=== PATIENT | female | born 1975 | race African-American/Black ===

== ENCOUNTER 2016-06-04 00:49 | Emergency (ER) | payer MEDICAID ==
[2016-06-04 00:49] VITALS: BMI 33.0
[2016-06-04 01:01] VITALS: TEMP 98.7
[2016-06-04] MEDS ORDERED: SODIUM CHLORIDE 0.9% 3 ML FLUSH FLUSH PRN (01:05)
[2016-06-04] MEDS ORDERED: NS 1,000 ML IV ONE ×2 (01:05)
[2016-06-04 01:20] LABS: ALL NEG? NO
[2016-06-04 01:27] LABS: LEUKOCYTES/URINE 2+ (NEGATIVE); NITRITE/URINE NEG (NEGATIVE); URINE OCCULT BLOOD NEG (NEG/TRACE)
[2016-06-04 01:29] LABS: MDMA* NEG (NEGATIVE); METHAMPHETAMINES NEG (NEGATIVE); OXYCODONE NEG (NEGATIVE)
[2016-06-04 01:38] LABS: AUTOMATED BASOPHIL 0.6 % (0-2); AUTOMATED LYMPH 41.9 % (17-44); AUTOMATED MONOCYTE 5.5 % (3-10); MPV 7.2 fL (7.4-10.4)
[2016-06-04 01:46] LABS: BLOOD UREA NITROGEN 15 MG/DL (7-17); CALC CORRECTED 9.2 MG/DL (8.4-10.2); CALCIUM 9.1 MG/DL (8.4-10.2); CALCULATED OSMOLALITY 269 MOs/Kg (270-290); CHLORIDE 99 mEq/L (98-107); GLUCOSE 103 MG/DL (70-99); SODIUM LEVEL 139 mEq/L (137-146); TOTAL PROTEIN 7.7 G/DL (6.3-8.2)
[2016-06-04 01:48] LABS: PARTIAL THROMB. TIME 23.4 SEC (22-35)
--- NOTE | 2016-06-04 01:50 | DIRPT ---
CLINICAL DATA: Hypertension. Difficulty breathing. Numbness on the left side of the face earlier today. Tingling in the legs. EXAM: PORTABLE CHEST 1 VIEW COMPARISON: 02/08/2015 FINDINGS: The heart size and mediastinal contours are within normal limits. Both lungs are clear. The visualized skeletal structures are unremarkable. IMPRESSION: No active disease. Electronically Signed By: Tucker Nassar M.D. On: 06/04/2016 01:47
--- NOTE | 2016-06-04 02:14 | EDPRACDOC ---
- General Information Chief Complaint: Neuro Symptoms/Deficits Stated Complaint: FACIAL NUMBNESS Time Seen by Provider: 06/04/16 01:05 Information Source: Patient Mode Of Arrival: Car Home Medications: Home Medications Alprazolam [Xanax] 0.5 mg PO BID 03/28/13 Omeprazole Magnesium 20 mg PO DAILY 10/23/14 Aspirin [Aspirin EC] 325 mg PO DAILY #30 tablet. 06/04/16 Allergies/Adverse Reactions: Allergies Allergy/AdvReac Type Severity Reaction Status Date / Time codeine [Codeine] Allergy Mild Rash-Genera Verified 10/23/14 08:10 lized Penicillins Allergy Unknown Verified 10/23/14 08:10 - History of Present Illness Onset: station captain Exact Onset of Symptoms: Upon Awakening ([employer]) Date Symptoms Started: 06/04/16 HPI: PT STATES SHE HAS NOTICED LEFT FACIAL NUMBNESS AND TINGLING THROUGHOUT THE DAY THAT HAD RESOLVED STATES SHE FELT FINE WENT TO BED AND APPROX 30MINUTES AFTER GOING TO SLEEP SHE WOKE HAVING LEFT FACIAL NUMBNESS AND TINGLING COULDNT FEEL HER LEGS JUMPED UP OUT OF BED RAN TO THE FRONT DOOR AND OPENED THE DOOR BECAUSE SHE COULDNT BREATH AND YELLED AT FAMILY TO CALL 911. PT STATES THEY TOLD HER AFTER SHE CALMED DOWN THAT SHE NEEDED TO GO TO THE ED TO BE CHECKED OUT. PT STATES HER SYMPTOMS HAVE RESOLVED AT THIS TIME. Symptoms Started: Reports: Suddenly Symptoms Description: Other (RESOLVED) Weakness: Bilateral: Leg, Left: Face Symptoms: Reports: Numbness (AND TINGLING TO LEFT SIDE OF FACE AND BILATERAL LEG NUMBNESS AND TINGLING) Symptom Severity: Reports: Does not affect activitiy (AT THIS TIME PT IS SYMPTOM FREE AT THIS TIME. ) Associated signs and symptoms:: Reports: None ED Past Medical History - History Reviewed Yes Nurses notes reviewed and agree except as marked Travel Outside of [place] in the Last 3 Months?: No No Past Medical History: Yes Patient has no past medical history - Patient Medical History Cardiac History: Reports: Hypertension, Stress Test GI/ History: Reports: Gastroesophageal Reflux Psychological History: Reports: Anxiety. Denies: Depression Systemic History: Denies: Cancer Additional Past Medical History: Mitral Valve Prolapse. Hiatal Hernia Surgical History: Denies: Hysterectomy - Family Medical History Reports: Cancer (negative for colon cancer) - Social Medical History Smoking Status: Never smoker ETOH: None Substance Abuse: None Lives With: Other Lives In: Home EDM Review of Systems - Review of Systems ROS Negative Except as Marked: Yes All systems reviewed and were negative except as marked Constitutional: No Symptoms Reported. negative: Fever, Chills, Weakness, Fatigue, Loss of Appetite Eyes: No Symptoms Reported. negative: Redness, Blurred Vision, Double Vision, Discharge, Pain, Light Sensitive, Photophobia Ears: No Symptoms Reported. negative: Pain, Hearing Loss, Drainage, Ear Pulling Throat: No Symptoms Reported. negative: Pain, Swelling Nose: No Symptoms Reported. negative: Congestion, Bleeding, Discharge, Injection, Swelling, Deformity, Ecchymosis, Tender, Abrasion, Laceration Mouth: No Symptoms Reported. negative: Pain, Drooling Respiratory: No Symptoms Reported. negative: Cough, Brassy Cough, Barky Cough, Shortness of Breath, Wheezing, Hemoptysis Cardiovascular: No Symptoms Reported. negative: Chest Pain, Palpitations, Syncope, Edema, Orthopnea, PND, Skin Mottling, Cyanosis Gastrointestinal: No Symptoms Reported. negative: Pain, Constipation, Nausea, Vomiting, Diarrhea, Melena, Formula Intolerance Genitourinary: No Symptoms Reported. negative: Dysuria, Hematuria, Frequency, Discharge, Bleeding, Testicular Pain, Neurological: Numbness (AND TINGLING LEFT SIDE OF FACE AND BILATERAL LOWER EXTREMITIES HAS RESOLVED AT THIS TIME.). negative: Dizziness, Gait Difficulty, Headache, Seizure, Speech Difficulty, Weakness Musculoskeletal: No Symptoms Reported. negative: Neck, Chestwall, Ribs, Back, Shoulder, Arm, Elbow, Forearm, Wrist, Hand, Pelvis, Hip, Femur, Knee, Leg, Ankle , Foot Integumentary: No Symptoms Reported. negative: Itching, Rash, Bruising, Wound Allergic/Immunologic: No Symptoms Reported. negative: Hives, Itching Hematologic: No Symptoms Reported. negative: Lymphadenopathy, Easy Bruising, Easy Bleeding Endocrine: No Symptoms Reported. negative: Weight Gain, Weight Loss Psychiatric: No Symptoms Reported. negative: Anxiety, Depression, Hallucinations, Insomnia, Suicidal - Physical Exam Constitutional: Alert (Awake), No apparent distress Oriented to: Time, Person, Place Last recorded Vital Signs: Last Vital Signs Temp 98.7 F 06/04/16 00:57 Pulse 91 06/04/16 00:57 Resp 20 06/04/16 00:57 BP 134/89 06/04/16 00:57 Pulse Ox 100 01/27/17 00:57 Oxygen Pulse Oxygen Saturation 100 O2 Device Room Air Oxygen Flow Rate Fraction of Inspired Oxygen ( FIO2) - HEENT Head: Normal ( normocephalic) Eye Exam: Normal (PERRL, EOMI, Sclera white) Oropharynx: Normal (Pharynx:Moist without exudate,Gums-no swelling) Tympanic Membrane: Normal ENT EAC: Normal TMJ: Normal Nose: No Symptoms Reported (septum midline) Neck: Normal (FROM, trachea at midline) - Respiratory/Cardiovascular Respiratory: Normal - CTA (BBS clear to auscultation without adventitious sounds ) Cardiovascular: Normal (RRR without murmur, gallop or rub) - GI Auscultation: Normal (NABS) Palpation: Normal (Soft,No rebound or guarding, non distended) Tenderness: Non tender Carter's Sign: Negative - Musculoskeletal Back: Normal (Non-Tender) Extremities: Normal (Normal tone, Pulses 2+ No cyanosis or edema, FROM) - Integumentary Skin: Normal, Warm, Dry Lymphatics: Normal (no adenopathy) - Neurologic Memory Impaired: Normal Motor Function: Normal (Normal tone, Pulses 2+ No cyanosis or edema, FROM) Cranial Nerve: Normal (CN II-X11 intact sensation, strength 5/5) Cerebellar: Normal Mood Description: Normal Perception: Normal NIH Stroke Scale Initial Evaluation Level of Consciousness: Alert LOC- Question: Answers Both Correctly LOC Commands: Both Task Correctly Best Gaze: Normal Visual: No Visual Loss Facial Palsy: Normal Movement Motor Arm LEFT: No Drift Motor Arm RIGHT: No Drift Motor Leg LEFT: No Drift Motor Leg RIGHT: No Drift Limb Ataxia: Absent Sensory: Normal Best Language: No Aphasia Dysarthria: Normal Extinction and Inattention: No Abnormality (Neglect) Score: 0out of42 - Differential Diagnosis Anemia, CVA, Dehydration, Electrolyte disorder, TIA, Other (MAGDALENO PALSY) - Results 06/04/16 01:23 06/04/16 01:23 WBC 7.2 xk/uL (3.8-10.8) 06/04/16 01:23 RBC 4.69 xM/uL (4.20-5.40) 06/04/16 01:23 Hgb 12.4 g/dL (12.0-16.0) 06/04/16 01:23 Hct 36.9 % (36-47) 06/04/16 01:23 MCV 79 fL (81-99) L 06/04/16 01:23 MCH 26.3 pg (27-32) L 06/04/16 01:23 MCHC 33.5 g/dl (33-36) 06/04/16 01:23 RDW 13.0 % (11.5-14.5) 06/04/16 01:23 Plt Count 210 xk/uL (130-400) 06/04/16 01:23 MPV 7.2 fL (7.4-10.4) L 06/04/16 01:23 Neut % (Auto) 51.0 % (45-76) 06/04/16 01:23 Lymph % (Auto) 41.9 % (17-44) 06/04/16 01:23 [place] % (Auto) 5.5 % (3-10) 06/04/16 01:23 Eos % (Auto) 1.0 % (0-5) 06/04/16 01:23 Baso % (Auto) 0.6 % (0-2) 06/04/16 01:23 Absolute Neuts (auto) 3.67 xk/uL (1.7-8.2) 06/04/16 01:23 Absolute Lymphs (auto) 2.95 xk/uL (0.65-4.75) 06/04/16 01:23 PT 10.7 SEC (9.2-11.2) 06/04/16 01:23 INR 1.0 06/04/16 01:23 APTT 23.4 SEC (22-35) 06/04/16 01:23 Sodium 139 mEq/L (137-146) 06/04/16 01:23 Potassium 3.8 mEq/L (3.5-5.1) 06/04/16 01:23 Chloride 99 mEq/L (98-107) 06/04/16 01:23 Carbon Dioxide 29 mMOL/L (22-33) 06/04/16 01:23 Anion Gap 15 mEq/L (8-16) 06/04/16 01:23 BUN 15 MG/DL (7-17) 06/04/16 01:23 Creatinine 0.80 MG/DL (0.52-1.04) 06/04/16 01:23 Estimated GFR (MDRD) > 60 mL/min (>=60) 06/04/16 01:23 Glucose 103 MG/DL (70-99) H 06/04/16 01:23 Calculated Osmolality 269 MOs/Kg (270-290) L 06/04/16 01:23 Calcium 9.1 MG/DL (8.4-10.2) 06/04/16 01:23 Corrected Calcium 9.2 MG/DL (8.4-10.2) 06/04/16 01:23 Total Bilirubin 0.3 MG/DL (0.2-1.3) 06/04/16 01:23 AST 22 IU/L (14-36) 06/04/16 01:23 ALT 29 IU/L (9-52) 06/04/16 01:23 Alkaline Phosphatase 69 IU/L (38-126) 06/04/16 01:23 Total Protein 7.7 G/DL (6.3-8.2) 06/04/16 01:23 Albumin 3.9 G/DL (3.5-5.0) 06/04/16 01:23 Urine Color Yellow 06/04/16 01:13 Urine Clarity Sl cldy 06/04/16 01:13 Urine pH 5.0 (5.0-8.0) 06/04/16 01:13 Ur Specific Spiro >/=1.035 (1.003-1.035) 06/04/16 01:13 Urine Protein 2+ (NEG/TRACE) H 06/04/16 01:13 Urine Glucose (UA) Neg (NEGATIVE) 06/04/16 01:13 Urine Ketones Neg (NEGATIVE) 06/04/16 01:13 Urine Occult Blood Neg (NEG/TRACE) 06/04/16 01:13 Urine Nitrite Neg (NEGATIVE) 06/04/16 01:13 Urine Bilirubin Neg (NEGATIVE) 06/04/16 01:13 Urine Urobilinogen <2.0 MG/DL (0-1) 06/04/16 01:13 Ur Leukocyte Esterase 2+ (NEGATIVE) H 06/04/16 01:13 Urine RBC 5-10 (0-5) H 06/04/16 01:13 Urine WBC 2-5 (0-5) 06/04/16 01:13 Ur Epithelial Cells 4+ 06/04/16 01:13 Urine Bacteria Few (NEG/FEW) 06/04/16 01:13 Urine Mucus Large (NEG/OCC) 06/04/16 01:13 Urine Opiates Screen Neg (NEGATIVE) 06/04/16 01:13 Ur Oxycodone Screen Neg (NEGATIVE) 06/04/16 01:13 Urine Methadone Screen Neg (NEGATIVE) 06/04/16 01:13 Ur Barbiturates Screen Neg (NEGATIVE) 06/04/16 01:13 Ur Tricyclics Screen Neg (NEGATIVE) 06/04/16 01:13 Ur Phencyclidine Scrn Neg (NEGATIVE) 06/04/16 01:13 Ur Amphetamines Screen Neg (NEGATIVE) 06/04/16 01:13 U Methamphetamines Scrn Neg (NEGATIVE) 06/04/16 01:13 Urine MDMA Screen Neg (NEGATIVE) 06/04/16 01:13 U Benzodiazepines Scrn *positive* (NEGATIVE) H 06/04/16 01:13 Urine Cocaine Screen Neg (NEGATIVE) 06/04/16 01:13 Ur THC Screen Neg (NEGATIVE) 06/04/16 01:13 Lab Results 06/04/16 06/04/16 06/04/16 01:23 01:23 01:23 WBC 7.2 RBC 4.69 Hgb 12.4 Hct 36.9 MCV 79 L MCH 26.3 L MCHC 33.5 RDW 13.0 Plt Count 210 MPV 7.2 L Neut % (Auto) 51.0 Lymph % (Auto) 41.9 [place] % (Auto) 5.5 Eos % (Auto) 1.0 Baso % (Auto) 0.6 Absolute Neuts (auto) 3.67 Absolute Lymphs (auto) 2.95 PT 10.7 INR 1.0 APTT 23.4 Sodium 139 Potassium 3.8 Chloride 99 Carbon Dioxide 29 Anion Gap 15 BUN 15 Creatinine 0.80 Estimated GFR (MDRD) > 60 Glucose 103 H Calculated Osmolality 269 L Calcium 9.1 Corrected Calcium 9.2 Total Bilirubin 0.3 AST 22 ALT 29 Alkaline Phosphatase 69 Total Protein 7.7 Albumin 3.9 Urine Color Urine Clarity Urine pH Ur Specific Spi[place] Urine Protein Urine Glucose (UA) Urine Ketones Urine Occult Blood Urine Nitrite Urine Bilirubin Urine Urobilinogen Ur Leukocyte Esterase Urine RBC Urine WBC Ur Epithelial Cells Urine Bacteria Urine Mucus Urine Opiates Screen Ur Oxycodone Screen Urine Methadone Screen Ur Barbiturates Screen Ur Tricyclics Screen Ur Phencyclidine Scrn Ur Amphetamines Screen U Methamphetamines Scrn Urine MDMA Screen U Benzodiazepines Scrn Urine Cocaine Screen Ur THC Screen 06/04/16 06/04/16 01:13 01:13 WBC RBC Hgb Hct MCV MCH MCHC RDW Plt Count MPV Neut % (Auto) Lymph % (Auto) [place] % (Auto) Eos % (Auto) Baso % (Auto) Absolute Neuts (auto) Absolute Lymphs (auto) PT INR APTT Sodium Potassium Chloride Carbon Dioxide Anion Gap BUN Creatinine Estimated GFR (MDRD) Glucose Calculated Osmolality Calcium Corrected Calcium Total Bilirubin AST ALT Alkaline Phosphatase Total Protein Albumin Urine Color Yellow Urine Clarity Sl cldy Urine pH 5.0 Ur Specific Spiro >/=1.035 Urine Protein 2+ H Urine Glucose (UA) Neg Urine Ketones Neg Urine Occult Blood Neg Urine Nitrite Neg Urine Bilirubin Neg Urine Urobilinogen <2.0 Ur Leukocyte Esterase 2+ H Urine RBC 5-10 H Urine WBC 2-5 Ur Epithelial Cells 4+ Urine Bacteria Few Urine Mucus Large Urine Opiates Screen Neg Ur Oxycodone Screen Neg Urine Methadone Screen Neg Ur Barbiturates Screen Neg Ur Tricyclics Screen Neg Ur Phencyclidine Scrn Neg Ur Amphetamines Screen Neg U Methamphetamines Scrn Neg Urine MDMA Screen Neg U Benzodiazepines Scrn *positive* H Urine Cocaine Screen Neg Ur THC Screen Neg - Diagnostic Imaging CT HEAD Image interpreted by: Radiologist IMPRESSION: 1. No acute intracranial pathology seen on CT. 2. Partial opacification of the right maxillary sinus. CXR Image interpreted by: Radiologist IMPRESSION: No active disease. Decision Time to Discharge: 02:24 - Departure Disposition: Home Condition: Stable Final Diagnosis: TRANSIENT PARETHESIAS Instructions: Paresthesia (ED) Education/Counseling Given To: Patient Education/Counseling Given Regarding: Diagnosis, Treatment, Prognosis, Follow Up Referrals: Robson Baez MD [Primary Care Provider] - One Week Lucio Nino MD [Staff Physician] - One Week Prescriptions: New Aspirin [Aspirin EC] 325 mg PO DAILY #30 tablet. No Action Alprazolam [Xanax] 0.5 mg PO BID Omeprazole Magnesium 20 mg PO DAILY Additional Instructions: RETURN FOR WORSE OR DIFFERENT SYMPTOMS.
--- NOTE | 2016-06-04 02:17 | DIRPT ---
CLINICAL DATA: Acute onset of left-sided facial numbness and bilateral leg tingling. Initial encounter. EXAM: CT HEAD WITHOUT CONTRAST TECHNIQUE: Contiguous axial images were obtained from the base of the skull through the vertex without intravenous contrast. COMPARISON: CT of the head performed 07/16/2014, and MRI of the brain performed 03/07/2015 FINDINGS: There is no evidence of acute infarction, mass lesion, or intra- or extra-axial hemorrhage on CT. The posterior fossa, including the cerebellum, brainstem and fourth ventricle, is within normal limits. The third and lateral ventricles, and basal ganglia are unremarkable in appearance. The cerebral hemispheres are symmetric in appearance, with normal zavaleta-white differentiation. No mass effect or midline shift is seen. There is no evidence of fracture; visualized osseous structures are unremarkable in appearance. The orbits are within normal limits. There is partial opacification of the right maxillary sinus. The remaining paranasal sinuses and mastoid air cells are well-aerated. No significant soft tissue abnormalities are seen. IMPRESSION: 1. No acute intracranial pathology seen on CT. 2. Partial opacification of the right maxillary sinus. Electronically Signed By: Qamar Velásquez M.D. On: 06/04/2016 02:14
[2016-06-04 03:07] VITALS: BP 109/64; PULSE 75
[2016-06-04] MEDS ORDERED: SODIUM CHLORIDE 0.9% 3 ML FLUSH FLUSH SCH (06:00)
== END 2016-06-04 03:05 | disposition home or self-care (01) ==
LOC: ED 00:49
DX: R20.9 Unspecified disturbances of skin sensation (principal); I10 Essential (primary) hypertension; K21.9 Gastro-esophageal reflux disease without esophagitis; F41.9 Anxiety disorder, unspecified; I34.1 Nonrheumatic mitral (valve) prolapse; Z79.899 Other long term (current) drug therapy; Z79.82 Long term (current) use of aspirin
CPT/HCPCS: 36415; 70450; 71010; 80053; 80307; 81001; 84484; 85025; 85610; 85730; 93005; 96360; 99283